=== PATIENT | female | born 1945 | race Asian ===

== ENCOUNTER 2019-05-13 16:41 | Inpatient (IN) | payer OTHER, MEDICAID ==
[~2019-05-13] VITALS: Ht 154.9 cm; Wt 49.2 kg
[2019-05-13 16:53] VITALS: Ht 154.9 cm; Wt 49.2 kg
[2019-05-13 18:48] LABS: PLATELET COUNT 208 x10^3mcL (130-400)
[2019-05-13 18:53] LABS: RED CELL DISTRIBUTION WIDTH 17.8 % (11.5-14.5)
[2019-05-13 18:56] LABS: CARBON DIOXIDE 29.1 mmol/L (21-32); CHLORIDE SERUM 105 mmol/L (98-107); CREATININE SERUM 3.3 mg/dL (0.6-1.0); GLUCOSE SERUM 118 mg/dL (74-106); POTASSIUM SERUM 3.5 mmol/L (3.5-5.1); SODIUM SERUM 145 mmol/L (136-145)
[2019-05-13 19:00] LABS: ALKALINE PHOSPHATASE 97 U/L (46-116); ALT/SGPT 13 U/L (14-59); AST/SGOT 19 U/L (15-37); BILIRUBIN TOTAL 0.5 mg/dL (0.20-1.00)
[2019-05-13 19:08] LABS: ALBUMIN 2.8 g/dL (3.4-5.0)
[2019-05-13 19:34] LABS: BAND NEUTROPHIL 0 % (0-10); BASOPHIL 0 % (0-2); MONOCYTE 1 % (0-7); SEGMENTED NEUTROPHILS 86 % (37-75)
[2019-05-13 19:35] LABS: rbc morphology (normal/abnorm) ABNORMAL (NORMAL)
[2019-05-13 19:48] LABS: CHOLESTEROL/HDL RATIO 2.2
[2019-05-13 21:08] VITALS: BP 130/67
[2019-05-14 00:47] VITALS: BP 125/56
[2019-05-14 05:22] VITALS: BP 117/55
[2019-05-14 06:41] LABS: CALCIUM 7.7 mg/dL (8.5-10.1); CARBON DIOXIDE 30.1 mmol/L (21-32); CHLORIDE SERUM 104 mmol/L (98-107); GLUCOSE SERUM 117 mg/dL (74-106); POTASSIUM SERUM 4.6 mmol/L (3.5-5.1); SODIUM SERUM 144 mmol/L (136-145)
[2019-05-14 06:46] LABS: CREATININE SERUM 4.4 mg/dL (0.6-1.0)
[2019-05-14 07:18] LABS: BASOPHIL % 0 % (0-2); PLATELET COUNT 141 x10^3mcL (130-400); RED CELL DISTRIBUTION WIDTH 17.5 % (11.5-14.5)
[2019-05-14 08:01] VITALS: BP 125/48
[2019-05-14 12:31] VITALS: BP 149/62
[2019-05-14 17:00] VITALS: BP 131/67
[2019-05-14] MEDS ORDERED: ATORVASTATIN CA10 M1 PO (17:23)
[2019-05-14] MEDS ORDERED: CALCIUM ACETAT667 M3 PO (17:24)
[2019-05-14] MEDS ORDERED: CARVEDILOL3.125 M1 PO (17:25)
[2019-05-14] MEDS ORDERED: PHARMASSURE FO0.4 MG PO (17:29)
[2019-05-14] MEDS ORDERED: IMD60 PO (17:30)
[2019-05-14] MEDS ORDERED: MEG40 PO (17:31)
[2019-05-14] MEDS ORDERED: TOPROL XL25 MG PO (17:32)
[2019-05-14] MEDS ORDERED: METFORMIN HYDR500 M1 PO (17:32)
[2019-05-14] MEDS ORDERED: OLANZAPINE20 M1 PO (17:42)
[2019-05-14] MEDS ORDERED: RESTORIL15 MG PO (17:43)
[2019-05-14] MEDS ORDERED: NATURE'S BLEND400 IU PO (17:44)
[2019-05-14] MEDS ORDERED: MONTELUKAST SOD10 M1 PO (17:45)
[2019-05-14 19:42] VITALS: BP 129/63
[2019-05-15 04:51] VITALS: BP 158/67
[2019-05-15 06:43] LABS: BASOPHIL % 0.1 % (0-2); PLATELET COUNT 183 x10^3mcL (130-400)
[2019-05-15 06:54] LABS: RED CELL DISTRIBUTION WIDTH 17.9 % (11.5-14.5)
[2019-05-15 06:56] LABS: CALCIUM 7.4 mg/dL (8.5-10.1); CARBON DIOXIDE 26.8 mmol/L (21-32); CHLORIDE SERUM 101 mmol/L (98-107); GLUCOSE SERUM 76 mg/dL (74-106); MAGNESIUM 1.7 mg/dL (1.8-2.4); PHOSPHOROUS 7.3 mg/dL (2.5-4.9); POTASSIUM SERUM 4.9 mmol/L (3.5-5.1); SODIUM SERUM 143 mmol/L (136-145)
[2019-05-15 07:37] LABS: CREATININE SERUM 6.1 mg/dL (0.6-1.0)
[2019-05-15 08:02] VITALS: BP 129/77
[2019-05-15 12:19] VITALS: BP 118/69
[2019-05-15 16:47] VITALS: BP 109/69
[2019-05-15 19:52] VITALS: BP 117/70
[2019-05-16 05:03] VITALS: BP 145/83
[2019-05-16 07:18] LABS: CALCIUM 7.9 mg/dL (8.5-10.1); CHLORIDE SERUM 101 mmol/L (98-107); GLUCOSE SERUM 121 mg/dL (74-106); MAGNESIUM 1.5 mg/dL (1.8-2.4); PHOSPHOROUS 5.6 mg/dL (2.5-4.9); SODIUM SERUM 140 mmol/L (136-145)
[2019-05-16 07:26] LABS: CREATININE SERUM 4.7 mg/dL (0.6-1.0)
[2019-05-16 08:40] LABS: PLATELET COUNT 181 x10^3mcL (130-400)
[2019-05-16 08:42] LABS: RED CELL DISTRIBUTION WIDTH 18.5 % (11.5-14.5)
[2019-05-16 08:43] LABS: BASOPHIL % 0 % (0-2)
[2019-05-16 09:05] VITALS: BP 97/61
[2019-05-16 12:10] VITALS: BP 143/74
[2019-05-16 17:55] VITALS: BP 150/77
[2019-05-16 19:47] VITALS: BP 154/74
[2019-05-17 05:01] VITALS: BP 169/66
[2019-05-17 06:32] VITALS: BP 157/85
[2019-05-17 08:34] VITALS: BP 149/62
[2019-05-17 11:30] LABS: PLATELET COUNT 192 x10^3mcL (130-400)
[2019-05-17 11:33] LABS: CALCIUM 8.5 mg/dL (8.5-10.1); CARBON DIOXIDE 22.3 mmol/L (21-32); CHLORIDE SERUM 102 mmol/L (98-107); GLUCOSE SERUM 153 mg/dL (74-106); LIPASE 659 IU/L (73-393); MAGNESIUM 2.4 mg/dL (1.8-2.4); POTASSIUM SERUM 4.5 mmol/L (3.5-5.1); SODIUM SERUM 142 mmol/L (136-145)
[2019-05-17 11:38] LABS: CREATININE SERUM 7.1 mg/dL (0.6-1.0)
[2019-05-17 11:40] LABS: RED CELL DISTRIBUTION WIDTH 17.9 % (11.5-14.5)
[2019-05-17 12:00] VITALS: BP 111/61
[2019-05-17 12:17] LABS: ATYPICAL LYMPH 2 %; BAND NEUTROPHIL 0 % (0-10); BASOPHIL 0 % (0-2); METAMYELOCTE 1 % (0-2); MONOCYTE 1 % (0-7); MYELOCYTE 1 % (0-2); SEGMENTED NEUTROPHILS 92 % (37-75); rbc morphology (normal/abnorm) ABNORMAL (NORMAL)
[2019-05-17 12:18] LABS: PLATELET MORPHOLOGY PLATELETS NORMAL
[2019-05-17 16:37] VITALS: BP 118/63
[2019-05-17 20:55] VITALS: BP 124/63
[2019-05-18 05:13] VITALS: BP 137/79
[2019-05-18 06:22] LABS: PLATELET COUNT 211 x10^3mcL (130-400)
[2019-05-18 06:43] LABS: CALCIUM 8.3 mg/dL (8.5-10.1); CHLORIDE SERUM 99 mmol/L (98-107); GLUCOSE SERUM 108 mg/dL (74-106); SODIUM SERUM 140 mmol/L (136-145)
[2019-05-18 07:07] LABS: POTASSIUM SERUM 5.8 mmol/L (3.5-5.1)
[2019-05-18 07:51] LABS: RED CELL DISTRIBUTION WIDTH 18.1 % (11.5-14.5)
[2019-05-18 08:22] VITALS: BP 107/71
[2019-05-18 09:59] LABS: BAND NEUTROPHIL 3 % (0-10); BASOPHIL 0 % (0-2); SEGMENTED NEUTROPHILS 92 % (37-75)
[2019-05-18 10:02] LABS: rbc morphology (normal/abnorm) ABNORMAL (NORMAL)
[2019-05-18 10:03] LABS: PLATELET MORPHOLOGY PLATELETS DECREASED
[2019-05-18 12:33] VITALS: BP 112/57
[2019-05-18 16:56] VITALS: BP 111/55
[2019-05-18 21:00] VITALS: BP 99/63
[2019-05-19 05:08] VITALS: BP 135/63
[2019-05-19 08:36] VITALS: BP 133/69
[2019-05-19] MEDS ORDERED: [UNRECOGNIZED DRUG - OTHER] MM (10:34)
[2019-05-19] MEDS ORDERED: MEDROL DOSEPAK4 MG PO (10:36)
[2019-05-19 11:49] VITALS: BP 133/69
[2019-05-19 12:38] VITALS: BP 135/84
[2019-05-19 17:06] VITALS: BP 121/58
== END 2019-05-19 19:09 | disposition home health service (06) | DRG 915 ==
LOC: ED 16:41 → DU 19:08
PROVIDERS: Emergency Medicine; ADMIT Internal Medicine
DX: T78.3XXA Angioneurotic edema, initial encounter (principal); N18.6 End stage renal disease; I12.0 Hypertensive chronic kidney disease with stage 5 chronic kidney disease or end stage renal disease; E44.0 Moderate protein-calorie malnutrition; Z68.1 Body mass index [BMI] 19.9 or less, adult; D72.829 Elevated white blood cell count, unspecified; T38.0X5A Adverse effect of glucocorticoids and synthetic analogues, initial encounter; Y92.238 Other place in hospital as the place of occurrence of the external cause; Z99.2 Dependence on renal dialysis
CPT/HCPCS: 82962; 83880; 84439; 97110-GP; 97116-GP; 97530-GP; G0378; J1200; J1644; J2270; J2405; J2920; J2930; J3010; J3475; J7030; Q0092